=== PATIENT | female | born 1960 | race Caucasian/White ===

== ENCOUNTER → 2016-03-05 | Outpatient (CLI) | payer BC, OTHER ==
[~2016-03-05] MED LIST: ACYC-147 PO; AMPH30CA3 PO; HYDR-4313 PO; IBUP-1050 PO; IBUP-1428 PO; LEVO75TA PO; OMEP20CA9 PO; ONDA4TAB7 SL; SERT50TA PO; VTMD PO
--- NOTE | 2016-03-05 14:09 | MAMMOGRAPHY REPORT ---
UNILATERAL RIGHT DIGITAL DIAGNOSTIC MAMMOGRAM TOMOSYNTHESIS WITH CAD AND TARGETED RIGHT ULTRASOUND: 03/05/2016 CLINICAL HISTORY: Short interval follow-up of right breast mass. The patient also notices intermitt ent pain in the right lateral breast. She reports a history of a right breast surgical excision for papilloma. TECHNIQUE: Breast tomosynthesis in addition to standard 2D mammography was performed. Current study was also evaluated with a Computer Aided Detection (CAD) system. Right CC and MLO 2-D and tomosynt hesis images were obtained. COMPARISON: Comparison is made to exams dated: 09/03/2015 ultrasound, 08/28/2015 mammogram, 2 mammogram, 01/08/2012 mammogram, 02/06/2011 mammogram, and 04/30/2009 mammogram - [facility]. BREAST COMPOSITION: There are scattered areas of fibroglandular density in the right breast. FINDINGS: Again noted is an oval partially circumscribed 8 mm mass seen within the right upper outer quadrant anteriorly. The mass does not appear significantly changed mammographically compared to t he prior August 2015 exam. Additionally, there is a possible oval circumscribed 7 mm mass seen within the right subareolar breast on the cc view only. The remainder of the right breast is stable celso red to prior exams, without suspicious masses, calcifications, or areas of architectural distortion noted. Benign-appearing calcifications are stable. Other small circumscribed round/oval benign-elver earing masses best seen on the tomosynthesis images are stable compared to the August 2015 exam. Targeted ultrasound was performed of the area of the previously seen right breast mass. In the righ t breast at 11:00 subareolar region, there is a superficial oval circumscribed anechoic mass with mu ltiple thin internal septations, measuring 7 x 10 x 5 mm. This does not appear significantly change d compared to the August 2015 exam. While this likely represents fibrocystic changes, given the histo ry of a papilloma a papillary lesion is not entirely excluded. Therefore, recommend ultrasound-guid ed core needle biopsy for further evaluation. In the right breast at 6:00 periareolar region, there is an oval circumscribed anechoic mass with 2 internal thin septations, which measures 6 x 2 x 6 mm . This likely represents a benign cyst. The patient desires aspiration of this cyst at the time of the core biopsy of the right 11:00 mass. IMPRESSION: ACR BI-RADS CATEGORY 4: SUSPICIOUS, TARGETED ULTRASOUND ACR BI-RADS CATEGORY 4: SUSPICI OUS 10 mm mass in the right breast at 11:00 subareolar region is stable compared to the August 2015 exam. The mass likely represents a cyst cluster/fibrocystic changes although is indeterminate. Recommend ultrasound guided core needle biopsy for further evaluation. At the time of the core biopsy, recom mend aspiration of the small complicated cyst in the right breast at 6:00 (45 minute time slot). A phone call was made to the physician's office to confirm faxed results were received. The patient has been verbally notified of the results. She tentatively scheduled the procedures before leaving the department. Approximately 10% of breast cancers are not detected with mammography. A negative mammographic repor t should not delay biopsy if a clinically suggestive mass is present. Stpehanie Gaona M.D. ah/:03/05/2016 11:52:50 Medical Coding Technician: Josemanuel Sanchez RT(R)(M), [facility] letter sent: Abnormal 4/5 BI-RADS Code: ACR BI-RADS Category 4: Suspicious Ultrasound BI-RADS: ACR BI-RADS Category 4: Suspic ious
--- NOTE | 2016-03-08 08:29 | CODING QUERY NO DIAGNOSIS ---
TREATMENT RENDERED WITHOUT A DIAGNOSIS To promote full compliance with coding requirements relating to patient care, physician participation is requested in all cases of elementary teacher uncertainty. Please assist us with providing a diagnosis/symptom for the test(s) below: A diagnosis/symptom was not documented on your Order. A valid diagnosis/symptom is required to bill all insurances. Please remember that we are unable to code a diagnosis of rule out, probable, possible, questionable, or suspected. Tests that require a diagnosis: DOS: 03/05/16 * RIGHT DIAGNOSTIC MAMMOGRAM W/ ULTRASOUND DIAGNOSIS: Provider Signature: Date: Thank you Lizzie May [employer] Once completed, please kindly fax back to [phone] For questions please call [phone]
== END | disposition home or self-care (01) ==
LOC: C.MAMM 10:24
PROVIDERS: ATTEND Family Medicine
DX: N63 Unspecified lump in breast (principal)

== ENCOUNTER → 2016-03-10 | Outpatient (CLI) | payer BC, OTHER ==
--- NOTE | 2016-03-10 08:43 | DIAGNOSTIC IMAGING REPORT ---
THYROID ULTRASOUND HISTORY: Multinodular thyroid MULTINODULAR GOITER, E28.9, R73.09, E55.9, D51.9 COMPARISON: 06/02/2007 FINDINGS: Right lobe: Multinodular right thyroid lobe. Maximum linear dimension 4.2 cm. Left lobe: Maximum linear dimension 3.8 cm. Several slightly complex and a partially calcified thyroid nodules. Isthmus: No nodules. IMPRESSION: Multicystic multinodular thyroid with no significant change compared to the prior study Electronically signed by: Isidoro Manrique M.D. 03/10/2016 8:41 AM Dictated Date/Time: 03/10/2016 8:34 AM
[2016-03-10 09:35] LABS: BASO % 0.5 %; BASO ABS # 0.03 K/uL (0-0.2); COMPLETE YES; EOS % 1.4 %; HEMATOCRIT 41.9 % (37-47); IG% 0.2 %; LYMPH % 27.3 %; LYMPH ABS # 1.74 K/uL (1.2-3.4); MEAN CELL VOLUME 93.7 fL (80-100); MEAN CORPUSCULAR HEMOGLOBIN 31.1 pg (25-34); MEAN CORPUSCULAR HGB CONC 33.2 g/dl (32-36); MEAN PLATELET VOLUME 10.7 fL (7.4-10.4); MONO % 5.7 %; NEUT % 64.9 %; PLATELET COUNT 215 K/uL (130-400); RED BLOOD COUNT 4.47 M/uL (4.2-5.4); WHITE BLOOD COUNT 6.37 K/uL (4.8-10.8)
[2016-03-10 09:51] LABS: ALT/SGPT 22 U/L (12-78); AST/SGOT 16 U/L (15-37); BLOOD UREA NITROGEN 12 mg/dl (7-18); BUN/CREATININE RATIO 16.1 (10-20); CALCIUM 9.1 mg/dl (8.5-10.1); CARBON DIOXIDE 29 mmol/L (21-32); CHLORIDE 107 mmol/L (98-107); CREATININE 0.75 mg/dl (0.60-1.20); GLUCOSE 100 mg/dl (70-99); POTASSIUM 3.9 mmol/L (3.5-5.1); SODIUM 145 mmol/L (136-145)
[2016-03-10 09:54] LABS: PROLACTIN 10.02 ng/mL
[2016-03-10 09:59] LABS: ALB/GLOB RATIO 1.2 (0.9-2); ALKALINE PHOSPHATASE 90 U/L (45-117); CHOLESTEROL 181 mg/dl (0-200); CHOLESTEROL/HDL RATIO 2.3; HDL CHOLESTEROL 78 mg/dl; LDL CHOLESTEROL CALCULATED 89 mg/dl; PHOSPHORUS 2.9 mg/dl (2.5-4.9); THYROID STIMULATING HORMONE 0.056 uIu/ml (0.300-4.500); TRIGLYCERIDES 71 mg/dl (0-150); URIC ACID 3.4 mg/dl (2.6-7.2); VERY LOW DENSITY LIPOPROT CALC 14 mg/dl
[2016-03-10 10:25] LABS: ESTIMATED AVERAGE GLUCOSE 105 mg/dl; HA1C FLAG Normal (Normal)
[2016-03-13 08:28] LABS: TESTOSTERONE,TOTAL 31.8 ng/dl
[2016-03-15 15:17] LABS: C-REACTIVE PROT HIGHSEN 8.9 MG/L; MICROSOMAL AB <1 IU/ML (<9); PREGNENELONE **TC 31493X 28 ng/dL; SEX HORMONE BINDING GLOB 57 NMOL/L (17-124)
== END | disposition home or self-care (01) ==
LOC: C.ULTR 07:46
PROVIDERS: ATTEND Family Medicine
DX: E28.9 Ovarian dysfunction, unspecified (principal); R73.09 Other abnormal glucose; E55.9 Vitamin D deficiency, unspecified; D51.9 Vitamin B12 deficiency anemia, unspecified; E04.2 Nontoxic multinodular goiter

== ENCOUNTER → 2016-03-13 | Outpatient (CLI) | payer BC, OTHER ==
--- NOTE | 2016-03-13 11:02 | Discharge Instructions ---
Discharge Instructions Procedure Procedure Date: Mar 13, 2016. Reason for visit: Right Mass. Discharge Discharge Date: Mar 13, 2016. Discharge Diagnosis: status post breast biopsy Instructions Activity Recommendations: Additional Limitations (see below) Return to School/Work: no limitations Recommended Home Diet: No Limitations Provider Instructions: ACTIVITY RECOMMENDATIONS: * No lifting, pushing, pulling or exercising the affected side for three days. RETURN TO SCHOOL/WORK: * You may return to work/school after the procedure, but do not perform any strenuous activities for 24 to 48 hours. MEDICATIONS: * Tylenol (two 325 mg) every four to six hours if needed for mild pain (if not allergic to Tylenol). DIET: * Resume previous diet. SPECIAL CARE INSTRUCTIONS: * Keep biopsy site dry for 24 hours. May shower after 24 hours, but do not soak (bathe) incision. * May remove Tegaderm (plastic patch) tomorrow AFTER showering. * Leave the steri-strips on for one week. Allow the steri-strips to fall off by themselves. If not off after one week, you may remove them. You may place a Bandaid crosswise over the strips, if desired. * Apply ice 10 minutes on and 10 minutes off as needed. * Wear a bra at bedtime to sleep more comfortably for 2-3 days. * Your referring physician should have the results after approximately 5 to 7 business days. * Call for unusual bleeding, fever, drainage, etc or if you have any questions call during normal business hours or after hours call Dr Gaona, . FOLLOW UP VISIT: Follow-up with Referring Physician as scheduled. Allergies Coded Allergies: Cefuroxime (Verified Allergy, Unknown, "ORAL THRUSH", 07/15/13) Desean Summers Recommendations: Call your doctor if: * Temperature above 101 degrees * Pain not relieved by pain medicine ordered * There is increased drainage or redness from any incision * You have any unanswered questions or concerns. Your Doctors Instructions noted above were prepared by provider Stephanie Gaona. Patient Signature Section: Patient Instructions Signature Page Manuela Stapleton Patient (or Guardian) Signature/Date: I have read and understand the instructions given to me by my caregivers. Caregiver/RN/Doctor Signature/Date: The above-named patient and/or guardian has received patient instructions on this date. + Original Patient Signature Page (only) stays with chart. Please make copy for patient.
--- NOTE | 2016-03-13 13:29 | MAMMOGRAPHY REPORT ---
ASPIRATION RIGHT BREAST: 03/13/2016 CLINICAL HISTORY: Right 6:00 breast cyst. PATIENT CONSENT: The procedure and risks of ultrasound-guided cyst aspiration were discussed in full with the patient. Both oral and written consents were obtained. PROCEDURE DESCRIPTION: With ultrasound guidance, aseptic technique, and 1% lidocaine as a local anes thetic, the mass of concern in the right 6:00 periareolar breast was aspirated to completion. Benig n-type pinkish yellow fluid was obtained and discarded. Direct pressure was applied to the site imm ediately post procedure and hemostasis was achieved. The patient tolerated the procedure without co mplication. She was given wound care instructions. COMPARISON: Comparison is made to exams dated: 03/05/2016 mammogram, 08/28/2015 mammogram, 01/08/2012 mammogram, and 02/06/2011 mammogram - [facility]. IMPRESSION: ASPIRATION Successful ultrasound-guided aspiration of the right 6:00 breast cyst. Given that it completely asp irated, it is consistent with a benign cyst and no further follow-up is needed. The aspirated fluid was discarded. Stephanie Gaona M.D. /:03/13/2016 11:06:55 Acute Care Physician: [place] ALATORRE)(Lloyd), [facility]
--- NOTE | 2016-03-13 13:29 | MAMMOGRAPHY REPORT ---
ULTRASOUND GUIDED BIOPSY RIGHT BREAST: 03/13/2016 CLINICAL HISTORY: Right 11:00 breast mass. PATIENT CONSENT: The procedure, risks and benefits were discussed with the patient and informed writ ten consent was obtained. A timeout was performed immediately prior to the procedure. PROCEDURE DESCRIPTION: With ultrasound guidance, aseptic technique, and lidocaine as the local anest hetic (1% lidocaine to anesthetize the skin and 1% lidocaine with epinephrine to anesthetize the esther per tissues), the mass of concern in the right 11:00 breast was sampled 3 times with a 14-gauge Achi cindi biopsy needle. Immediately thereafter, with ultrasound guidance, aseptic technique, and lidocai ne as the local anesthetic, a metallic localizer clip was placed at the biopsy site. Direct pressur e was applied to the site immediately post procedure and hemostasis was achieved. Postprocedure uni lateral mammograms were performed to confirm placement of the clip in the expected location of the b reast mass. The patient tolerated the procedure without complication. She was given wound care ins tructions. The specimens were sent to pathology for analysis. COMPARISON: Comparison is made to exams dated: 03/05/2016 ultrasound, 03/05/2016 mammogram, 09/03/2015 ultrasound, 08/28/2015 mammogram, and 01/08/2012 mammogram - [facility]. IMPRESSION: ULTRASOUND GUIDED BIOPSY Ultrasound-guided core needle biopsy of the right 11:00 breast mass, with clip placement. The patie nt will receive pathology results from her referring physician. Stephanie Gaona M.D. ah/:03/13/2016 11:05:01 Attending Technologist: Stephanie Gaona MD, [facility] Rug Cleaner Hand: Georgia Walter RT(R)(M), [facility]
--- NOTE | 2016-03-13 13:30 | MAMMOGRAPHY REPORT ---
UNILATERAL RIGHT DIGITAL DIAGNOSTIC MAMMOGRAM: 03/13/2016 CLINICAL HISTORY: Status post ultrasound guided biopsy of the right 11:00 breast mass. Status post ultrasound guided aspiration of a right 6:00 breast cyst. TECHNIQUE: Postprocedural right CC and ML views were obtained. COMPARISON: Comparison is made to exams dated: 03/05/2016 mammogram, 08/28/2015 mammogram, 01/08/2012 mammogram, and 02/06/2011 mammogram - [facility]. BREAST COMPOSITION: There are scattered areas of fibroglandular density in the right breast. FINDINGS: A new biopsy marker clip is seen at the site of the biopsied mass in the right 11:00 suba reolar breast. The mass is significantly decreased in size after the biopsy. No significant postbi opsy hematoma is seen. IMPRESSION: POST PROCEDURE IMAGING FOR MARKER PLACEMENT New biopsy marker clip status post ultrasound guided biopsy of the right 11:00 breast mass. Patholo gy results are pending. Approximately 10% of breast cancers are not detected with mammography. A negative mammographic repor t should not delay biopsy if a clinically suggestive mass is present. Stephanie Gaona M.D. /:03/13/2016 11:09:24 Associate Theatre Professor: [place] ALATORRE)(Lloyd), [facility] BI-RADS Code: Post Procedure Imaging For Marker Placement
== END | disposition home or self-care (01) ==
LOC: C.MAMM 10:23
PROVIDERS: ATTEND Family Medicine
DX: N63 Unspecified lump in breast (principal); N60.11 Diffuse cystic mastopathy of right breast

== ENCOUNTER → 2017-04-09 | Outpatient (CLI) | payer OTHER ==
--- NOTE | 2017-04-09 14:25 | DIAGNOSTIC IMAGING REPORT ---
THYROID ULTRASONOGRAPHY CLINICAL HISTORY: Multinodular thyroid gland COMPARISON STUDY: March 10, 2016 FINDINGS: The right lobe measures 40 x 13 x 15 mm. There are multiple right lobe nodules. The 2 largest are in isoechoic circumscribed wider than tall 18 x 4 x 11 mm nodule, and a hypoechoic circumscribed wider than tall 13 x 9 x 7 mm nodule. The left lobe measures 36 x 10 x 14 mm. There is a densely calcified 16 x 12 x 8 mm nodule. The second largest nodule is isoechoic 9 x 6 x 7 mm nodule. IMPRESSION: Multinodular thyroid gland, similar to the prior March 10, 2016 study Electronically signed by: Faheem Wilson M.D. 04/09/2017 2:23 PM Dictated Date/Time: 04/09/2017 2:20 PM
== END | disposition home or self-care (01) ==
LOC: C.ULTR 13:13
PROVIDERS: ATTEND Family Medicine
DX: E04.2 Nontoxic multinodular goiter (principal)